=== PATIENT | female | born 1950 | race Caucasian/White ===

== ENCOUNTER 2023-10-11 09:41 | Day surgery (SDC) | payer MEDICARE ==
--- NOTE | 2023-10-11 08:29 | HP ---
DATE OF SURGERY: 10/11/2023 HISTORY OF PRESENT ILLNESS: The patient is a 73-year-old with vague right abdominal pain, history of polyps in the past. Last colonoscopy three years ago. No bloody stools. Family history negative for colon cancer. PAST MEDICAL HISTORY: Arthritis, hyperlipidemia, hypothyroidism, hypertension, history of polyps. PAST SURGICAL HISTORY: Cataract surgery, lens surgery. Carpal tunnel surgery. Hysterectomy. MEDICATIONS: Omeprazole, pravastatin, prednisone, vitamin D3, omega-3, levothyroxine, losartan, losartan, atenolol. ALLERGIES: IODINE. IODINATED CONTRAST. FAMILY HISTORY: Negative for colon cancer. SOCIAL HISTORY: History of smoking, occasional alcohol use. REVIEW OF SYSTEMS: Fourteen systems reviewed. No chest pain or palpitations. Other systems negative or noncontributory as above and per preadmission questionnaire. PHYSICAL EXAMINATION: GENERAL: No acute distress. HEENT: Sclerae nonicteric. EOMI. Oral mucous membranes moist. NECK: No JVD. CHEST: Equal excursion, nonlabored breathing. CVS: Regular rate and rhythm. ABDOMEN: Soft. EXTREMITIES: No significant edema. NEURO: Alert, oriented, moving extremities symmetrically. RECTAL: Deferred timed to endoscopy exam. PSYCH: Appropriate mood and affect. SKIN: Dry. IMPRESSION: History of polyps, some vague right abdominal pain. I feel the patient would benefit from colonoscopy for evaluation. He was explained the procedure in detail including but not limited to risk of bleeding or infection, risk of bowel injury or perforation possibly requiring further procedure, risk of missed or nondiagnosis or incomplete exam possibly requiring barium enema, other studies or procedures, general risk of anesthesia or sedation, risk of bowel prep but not limited to. Otherwise continue medication for hypertension, hyperlipidemia, thyroid disease, reflux and arthritis. Plan outpatient colonoscopy under MAC anesthesia.
[2023-10-11] MEDS ORDERED: Lactated Ringers 1,000 ML IV ONE (10:13)
[2023-10-11] MEDS: Lactated Ringers 1,000 ML IV SCH (10:19)
[2023-10-11] MEDS ORDERED: DIPRIVAN 200 MG/20 ML IV ONE ×2 (12:21→12:37)
[2023-10-11 13:21] VITALS: RESP 16
[2023-10-11 13:29] VITALS: BP 180/74; PULSE 67; TEMP 98.4; O2SAT 98
--- NOTE | 2023-10-12 08:42 | OP ---
SURGERY DATE/TIME: 10/11/2023 1228 PREOPERATIVE DIAGNOSIS: History of polyps, history of some vague right abdominal aches. POSTOPERATIVE DIAGNOSES: Polyps, a few small diverticula left colon. PROCEDURES: 1) Colonoscopy to cecum. 2) Hot biopsy polypectomy ascending colon polyp. 3) Hot biopsy polypectomy transverse colon polyp. 4) Hot biopsy polypectomy sigmoid colon polyp. 5) Random cold biopsy of colon to evaluate for microscopic colitis. 6) ASA Class III. 7) Withdrawal time approximately ten minutes. 8) Prep was fair. SURGEON: Dr. Eliezer Blair. ANESTHESIA: MAC. ESTIMATED BLOOD LOSS: Minimal. INDICATIONS: As noted above. Risks and benefits explained in detail but not limited to and consent obtained. DESCRIPTION OF PROCEDURE AND FINDINGS: The patient is taken to the endoscopy room. MAC anesthesia induced. After official time out and no disagreement with planned procedure, digital rectal exam did not reveal any rectal masses. Video colonoscope inserted and passed up through the slightly tortuous sigmoid, descending, transverse and ascending colon around to the cecum. Appendiceal orifice and valve well visualized. The very tip of the terminal ileum was grossly unremarkable. Some random cold biopsies taken to evaluate for microscopic colitis. The scope is carefully withdrawn over the next ten minutes stopping in the ascending colon, transverse colon and sigmoid colon and removed small polyps with hot biopsy polypectomy. Good hemostasis noted. Otherwise a random cold biopsy had been taken to evaluate for microscopic colitis. ASA Class III. Prep was fair. The scope is withdrawn. The patient tolerated the procedure well. He had a few small diverticula in the left colon. She had some small internal hemorrhoids. There were no signs of any large polyps, masses or obstructing lesions. The patient tolerated the procedure well. There were no immediate complications. Findings discussed with the family out in the waiting area.
== END 2023-10-11 13:39 | disposition home or self-care (01) ==
LOC: SDC 09:41
PROVIDERS: ATTEND Surgery
DX: Z09 Encounter for follow-up examination after completed treatment for conditions other than malignant neoplasm (principal); Z86.010 Personal history of colon polyps; R10.9 Unspecified abdominal pain; K57.30 Diverticulosis of large intestine without perforation or abscess without bleeding; D12.2 Benign neoplasm of ascending colon; D12.3 Benign neoplasm of transverse colon
CPT/HCPCS: 99100; J2704